=== PATIENT | male | born 1975 | race Caucasian/White ===

== ENCOUNTER → 2018-02-13 | Outpatient (REF) | payer OTHER ==
[~2018-02-13] MED LIST: RANI300C PO
== END ==
LOC: M LAB REF 15:22
PROVIDERS: ATTEND Physician Assistant
DX: J00 Acute nasopharyngitis [common cold] (principal)

== ENCOUNTER 2023-12-07 18:36 | Emergency (ER) | payer OTHER ==
[~2023-12-07] VITALS: Ht 162.6 cm; Wt 69.1 kg
[2023-12-07 18:45] VITALS: TEMP 97.5
[2023-12-07] MEDS ORDERED: METF-838 (18:47)
[2023-12-07] MEDS ORDERED: SILD25TA2 (18:47)
[2023-12-07] MEDS ORDERED: CYCL5TAB (18:47)
[2023-12-07] MEDS ORDERED: LISI5TAB11 (18:47)
[2023-12-07] MEDS ORDERED: MORPHINE 4 MG/ML 1ML VIAL IV PRN (19:10)
[2023-12-07] MEDS ORDERED: ISOVUE-370 76% 100ML VIAL As Ordered ONE (19:11)
[2023-12-07 19:19] LABS: BASO % 0.2 % (0.0-1.0); EOS # 0.1 10^3/uL (0.0-0.5); EOS % 1.2 % (0.0-3.0); HEMATOCRIT 44.6 % (42.0-52.0); HEMOGLOBIN 15.1 g/dl (13.5-17.5); LYMPH # 3.4 10^3/uL (1.5-5.0); LYMPH % 41.2 % (24.0-44.0); MEAN CORPUSCULAR HEMOGLOBIN 29.7 pg (27.0-33.0); MEAN CORPUSCULAR HGB CONC 33.9 g/dl (32.0-36.5); MEAN CORPUSCULAR VOLUME 87.6 fl (80.0-96.0); MONO # 0.5 10^3/uL (0.0-0.8); MONO % 5.4 % (2.0-8.0); NEUTROPHILS # 4.2 10^3/uL (1.5-8.5); PLATELET COUNT, AUTOMATED 238 10^3/uL (150-450); RED BLOOD COUNT 5.09 10^6/uL (4.30-6.10); WHITE BLOOD COUNT 8.3 10^3/uL (4.0-10.0)
[2023-12-07 19:24] LABS: ETHYL ALCOHOL (ETHANOL) < 0.003 % (0.000-0.010); LIPASE 38 U/L (12-53)
[2023-12-07 19:25] LABS: AMYLASE 46 U/L (30-118)
[2023-12-07 19:26] LABS: ALBUMIN 4.2 G/DL (3.2-5.2); ALKALINE PHOSPHATASE 144 U/L (46-116); ALT/SGPT 117 U/L (7.0-40); AST/SGOT 90 U/L (<34); BILIRUBIN,DIRECT < 0.1 MG/DL (<0.4); BILIRUBIN,TOTAL 0.4 MG/DL (0.3-1.2); TOTAL PROTEIN 7.1 G/DL (5.7-8.2)
[2023-12-07 19:31] LABS: INR 0.97; PARTIAL THROMBOPLASTIN TIME 21.4 SECONDS (24.8-34.2); PROTHROMBIN TIME 12.6 SECONDS (12.5-14.5)
[2023-12-07] MEDS: DERMABOND TOPICAL SKIN ADHESIVE TOP ONE (21:50)
[2023-12-07 22:30] VITALS: BP 135/76; O2SAT 98
== END 2023-12-07 22:50 | disposition home or self-care (01) ==
LOC: EDBD 18:36 → M ED 18:36
DX: S80.01XA Contusion of right knee, initial encounter (principal); S00.93XA Contusion of unspecified part of head, initial encounter; S20.211A Contusion of right front wall of thorax, initial encounter; S30.0XXA Contusion of lower back and pelvis, initial encounter; S01.21XA Laceration without foreign body of nose, initial encounter; S40.212A Abrasion of left shoulder, initial encounter; S80.812A Abrasion, left lower leg, initial encounter; E11.9 Type 2 diabetes mellitus without complications; V49.40XA Driver injured in collision with unspecified motor vehicles in traffic accident, initial encounter; Y92.410 Unspecified street and highway as the place of occurrence of the external cause; Y93.89 Activity, other specified; Y99.9 Unspecified external cause status; Z79.4 Long term (current) use of insulin; Z79.811 Long term (current) use of aromatase inhibitors; Z79.899 Other long term (current) drug therapy
CPT/HCPCS: 36415; 70450; 70486; 71045; 71260; 72125; 72131; 73030; 73564; 73590; 74177; 80047; 80076; 82077; 82150; 83605; 83690; 85025; 85610; 85730; 86850; 86900; 86901; 93041; 94760; 99285; Q9967